=== PATIENT | female | born 1995 | race Caucasian/White ===

== ENCOUNTER 2019-06-12 22:34 | Emergency (ER) | payer OTHER ==
[~2019-06-12] VITALS: Ht 160 cm; Wt 95.0 kg
[2019-06-12 23:02] VITALS: BP 115/79
[2019-06-12 23:06] LABS: BILIRUBIN,URINE NEGATIVE (NEG); CLARITY,URINE CLEAR; COLOR,URINE YELLOW; NITRITE,URINE NEGATIVE (NEG); PH,URINE 5.5 (<5.0-8.0); PROTEIN,URINE NEGATIVE (NEG-TRACE)
[2019-06-12 23:11] LABS: SQUAMOUS EPITHELIAL CELL,UR MOD /LPF
[2019-06-12 23:12] LABS: BACTERIA,URINE 0 /HPF (0-FEW); RBC,URINE OCC /HPF (0-2); WBC,URINE OCC /HPF (0-4)
--- NOTE | 2019-06-12 23:15 | PHYS DOC ---
Past Medical History Past Medical History: Pneumonia, UTI Past Surgical History: No Surgical History Smoking Status: Former Smoker Alcohol Use: Occasionally General Adult EDM: Chief Complaint: FATIGUE HPI: HPI: Patient is a 24 year old female who presents with complaint of chest pain and shortness of breath as well as fatigue that started last Wednesday. She denies any cough. Patient states that the shortness of breath is more because it hurts to breathe. Patient does indicate that she had a fever over 100 a couple of days ago but no further fever.[] Review of Systems: Review of Systems: Constitutional: Reports fever and chills. [] Respiratory: Denies cough. Complains of shortness of breath. [] Cardiovascular: [place] of chest pain. [] GI: Denies abdominal pain, nausea, vomiting, bloody stools or diarrhea. [] Musculoskeletal: Denies back pain or joint pain. [] Integument: Denies rash. [] Neurologic: Denies headache, focal weakness or sensory changes. [] A full 10 point review of systems has been reviewed and is otherwise negative. Heart Score: Risk Factors: Risk Factors: DM, Current or recent (<one month) smoker, HTN, HLP, family history of CAD, obesity. Risk Scores: Score 0 - 3: 2.5% MACE over next 6 weeks - Discharge Home Score 4 - 6: 20.3% MACE over next 6 weeks - Admit for Clinical Observation Score 7 - 10: 72.7% MACE over next 6 weeks - Early Invasive Strategies Physical Exam: PE: Constitutional: Well developed, well nourished, no acute distress, non-toxic appearance. [] HENT: Normocephalic, atraumatic, bilateral external ears normal, oropharynx moist, no oral exudates, nose normal. [] Eyes: PERRLA, EOMI, conjunctiva normal, no discharge. [] Neck: Normal range of motion, no tenderness, supple, no stridor. [] Cardiovascular: Regular rate and rhythm[] Lungs & Thorax: Bilateral breath sounds clear to auscultation [] Abdomen: Bowel sounds normal, soft, no tenderness. [] Skin: Warm, dry, no erythema, no rash. [] Extremities: No tenderness, no cyanosis, no clubbing, ROM intact, no edema. [] Neurologic: Alert and oriented X 3, no focal deficits noted. [] Current Patient Data: Labs: Laboratory Tests Test 06/12/19 22:50 06/12/19 22:53 Urine Collection Type Unknown Urine Color Yellow Urine Clarity Clear Urine pH 5.5 (<5.0-8.0) Urine Specific [place] >=1.030 (1.000-1.030) Urine Protein Negative mg/dL (NEG-TRACE) Urine Glucose (UA) Negative mg/dL (NEG) Urine Ketones (Stick) Trace mg/dL (NEG) Urine Blood Trace (NEG) Urine Nitrite Negative (NEG) Urine Bilirubin Negative (NEG) Urine Urobilinogen Dipstick 1.0 mg/dL (0.2 mg/dL) Urine Leukocyte Esterase Negative (NEG) Urine RBC Occ /HPF (0-2) Urine WBC Occ /HPF (0-4) Urine Squamous Epithelial Cells Mod /LPF Urine Bacteria 0 /HPF (0-FEW) Urine Mucus Marked /LPF POC Urine HCG, Qualitative Hcg negative (Negative) Vital Signs: Vital Signs Date Time Temp Pulse Resp B/P (MAP) Pulse Ox O2 Delivery O2 Flow Rate FiO2 06/12/19 23:02 98.2 80 16 115/79 (91) 100 Room Air 98.2 EKG: EKG: EKG demonstrates normal sinus rhythm with rate of 75.[] Radiology/Procedures: Radiology/Procedures: [] Course & Med Decision Making: Course & Med Decision Making Pertinent Labs and Imaging studies reviewed. (See chart for details) [] Dragon Disclaimer: Dragon Disclaimer: This electronic medical record was generated, in whole or in part, using a voice recognition dictation system. Departure Departure Impression: Primary Impression: Atypical chest pain Additional Impression: Dehydration Disposition: 01 HOME, SELF-CARE Condition: STABLE Referrals: NO PCP (PCP) Patient Instructions: Chest Pain (Nonspecific), Dehydration, Adult, Fatigue JEWEL FERNANDEZ Jr. DO Jun 12, 2019 23:15
[2019-06-12 23:17] LABS: BASO % 1 % (0-3); EOS # 0.2 x10^3/uL (0.0-0.7); EOS % 3 % (0-3); LYMPH # 2.7 x10^3/uL (1.0-4.8); LYMPH % 32 % (24-48); MEAN CORPUSCULAR HEMOGLOBIN 32 pg (25-35); MEAN CORPUSCULAR HGB CONC 35 g/dL (31-37); MEAN CORPUSCULAR VOLUME 90 fL (79-100); MONO # 0.5 x10^3/uL (0.0-1.1); MONO % 6 % (0-9); NEUT % 59 % (31-73); PLATELET COUNT 183 x10^3/uL (140-400); RED BLOOD COUNT 4.76 x10^6/uL (3.50-5.40); RED CELL DISTRIBUTION WIDTH 12.7 % (11.5-14.5); WHITE BLOOD COUNT 8.5 x10^3/uL (4.0-11.0)
[2019-06-12 23:25] LABS: CALCIUM 9.1 mg/dL (8.5-10.1); CREATININE 0.6 mg/dL (0.6-1.0); GFR 122.8; POTASSIUM 3.7 mmol/L (3.5-5.1)
[2019-06-12 23:32] LABS: ALBUMIN 4.2 g/dL (3.4-5.0); TOTAL BILIRUBIN 0.5 mg/dL (0.2-1.0); TOTAL PROTEIN 8.6 g/dL (6.4-8.2)
--- NOTE | 2019-06-12 23:42 | RAD ---
EXAM: AP View of the chest DATE: 06/12/2019 10:53 PM INDICATION: Dyspnea COMPARISON: No Prior FINDINGS: The heart is not enlarged. Mediastinal and hilar contours are normal. No focal parenchymal airspace opacity. No pleural effusion or pneumothorax. IMPRESSION: 1. No radiographic evidence for acute cardiopulmonary process. Electronically signed by: Cliff Oliva MD (06/12/2019 11:38 PM) LEONID
== END 2019-06-12 23:45 | disposition home or self-care (01) ==
LOC: ER 22:34
DX: R07.89 Other chest pain (principal); E86.0 Dehydration; Z87.891 Personal history of nicotine dependence
CPT/HCPCS: 36415; 71045; 80053; 81001; 81025; 85025; 99284

== ENCOUNTER 2021-05-13 21:41 | Observation (INO) | payer OTHER ==
[~2021-05-13] VITALS: Ht 160 cm; Wt 86.0 kg
[2021-05-13 23:04] LABS: BILIRUBIN,URINE NEGATIVE (NEG); CLARITY,URINE CLEAR; COLOR,URINE YELLOW
[2021-05-13 23:05] LABS: NITRITE,URINE NEGATIVE (NEG); PROTEIN,URINE NEGATIVE (NEG-TRACE); UROBILINOGEN,URINE 0.2 mg/dL (0.2 mg/dL)
[2021-05-13 23:08] LABS: BACTERIA,URINE FEW /HPF (0-FEW)
[2021-05-13 23:08] LABS: BASO % 1 % (0-3); EOS # 0.3 x10^3/uL (0.0-0.7); EOS % 5 % (0-3); HEMATOCRIT 37.3 % (36.0-47.0); HEMOGLOBIN 12.8 g/dL (12.0-15.5); LYMPH # 2.1 x10^3/uL (1.0-4.8); LYMPH % 40 % (24-48); MEAN CORPUSCULAR HEMOGLOBIN 32 pg (25-35); MEAN CORPUSCULAR HGB CONC 34 g/dL (31-37); MEAN CORPUSCULAR VOLUME 93 fL (79-100); MONO # 0.3 x10^3/uL (0.0-1.1); MONO % 6 % (0-9); NEUT # 2.6 x10^3/uL (1.8-7.7); NEUT % 48 % (31-73); PLATELET COUNT 175 x10^3/uL (140-400); RED CELL DISTRIBUTION WIDTH 12.1 % (11.5-14.5); WHITE BLOOD COUNT 5.3 x10^3/uL (4.0-11.0)
[2021-05-13 23:16] LABS: CALCIUM 8.5 mg/dL (8.5-10.1); CREATININE 0.8 mg/dL (0.6-1.0); GFR 87.4; POTASSIUM 3.9 mmol/L (3.5-5.1)
[2021-05-13 23:22] LABS: ALBUMIN 3.7 g/dL (3.4-5.0); TOTAL BILIRUBIN 0.2 mg/dL (0.2-1.0); TOTAL PROTEIN 7.5 g/dL (6.4-8.2)
[2021-05-13] MEDS ORDERED: IV NORMAL SALINE 1000ML BAG 1,000 ML IV ONE (23:30)
[2021-05-13] MEDS ORDERED: KETOROLAC 30 MG/ML VIAL. IVP ONE (23:30)
[2021-05-14] VITALS (11 sets, daily range): BP systolic 85–120; BP diastolic 50–68
--- NOTE | 2021-05-14 00:10 | PHYS DOC ---
Past Medical History Past Medical History: Pneumonia, UTI Past Surgical History: No Surgical History Smoking Status: Never Smoker Alcohol Use: Rarely General Adult EDM: Chief Complaint: ABDOMINAL PAIN HPI: HPI: Patient is a 25-year-old female presents to the emergency department complaining of right upper quadrant discomfort for the past 4 months. Patient reports she seen her primary care physician who diagnosed her with GERD and started her on omeprazole. Patient reports this does not seem to be helping. Patient denies taking other medications. Patient states her last menstrual cycle was approximately 2 years ago. Patient states she has an IUD. Patient reports intermittent nausea however is not nauseated at this time, denies vomiting, diarrhea, chest pains or chest palpitations, denies chest or nasal congestion. Patient denies recent fever or chills. Patient denies a surgical history. Patient denies history of gallstones or gallbladder disease. Patient reports she does not smoke cigarettes however does vape on occasion, denies alcohol consumption, reports he does smoke marijuana. Patient states her current pain is an 8 out of 10. Patient reports eating makes it worse, does not feel anythi ng makes it better. Has not taken [id number] or prescription pain medications for this pain. Review of Systems: Review of Systems: 14 body systems of review of systems have been reviewed. See HPI for pertinent positives and negative responses, otherwise all other systems are negative, nonpertinent or noncontributory. Constitutional: Negative except as outlined in HPI above. Skin: Negative except as outlined in HPI above. Eyes: Negative except as outlined in HPI above. HENT: Negative except as outlined in HPI above. Respiratory: Negative except as outlined in HPI above. Cardiovascular: Negative except as outlined in HPI above. GI: Negative except as outlined in HPI above. : Negative except as outlined in HPI above. Musculoskeletal: Negative except as outlined in HPI above. Integument: Negative except as outlined in HPI above. Neurologic: Negative except as outlined in HPI above. Endocrine: Negative except as outlined in HPI above. Lymphatic: Negative except as outlined in HPI above. Psychiatric: Negative except as outlined in HPI above. Heart Score: C/O Chest Pain: No Risk Factors: Risk Factors: DM, Current or recent (<one month) smoker, HTN, HLP, family history of CAD, obesity. Risk Scores: Score 0 - 3: 2.5% MACE over next 6 weeks - Discharge Home Score 4 - 6: 20.3% MACE over next 6 weeks - Admit for Clinical Observation Score 7 - 10: 72.7% MACE over next 6 weeks - Early Invasive Strategies Current Medications: Current Medications Medications (Trade) Dose Ordered Sig/[facility] Start Time Stop Time Status Last Admin Dose Admin Ketorolac Tromethamine (Toradol 30mg Vial) 30 mg 1X ONCE 05/13/21 23:30 05/13/21 23:31 DC 05/13/21 23:24 30 MG Sodium Chloride 1,000 ml @ 1,000 mls/hr 1X ONCE 05/13/21 23:30 05/14/21 00:29 05/13/21 23:23 1,000 MLS/HR Allergies: Allergies: Allergies Coded Allergies Type Severity Reaction Last Updated Verified No Known Drug Allergies 05/13/21 No Physical Exam: PE: Constitutional: Well developed, well nourished, no acute distress, non-toxic appearance. 25-year-old female in no apparent distress. HENT: Normocephalic, atraumatic. Eyes: Conjunctiva normal, no discharge. Neck: Normal range of motion, no stridor. Cardiovascular: No cyanosis appreciated, distal cap refill less than 2 seconds. Lungs & Thorax: Patient is in no respiratory distress, no audible adventitious lung sounds appreciated. Abdomen: No tenderness to the left upper quadrant left lower or right lower quadrant. There is tenderness to palpation to the right upper quadrant, positive Santiago sign no abnormal skin discoloration of the abdomen appreciated, there are no surgical scars of the abdomen. Skin: Warm, dry, no erythema, no rash. Back: No tenderness, no deformities. Extremities: No tenderness, no cyanosis, no clubbing, ROM intact, no edema. Neurologic: Alert and oriented X 3, normal motor function, normal sensory function, no focal deficits noted. Psychologic: Affect normal, judgement normal, mood normal. Current Patient Data: Labs: Laboratory Tests Test 05/13/21 22:40 05/13/21 22:49 05/13/21 22:58 Urine Collection Type Unknown Urine Color Yellow Urine Clarity Clear Urine pH 6.0 (<5.0-8.0) Urine Specific [place] 1.025 (1.000-1.030) Urine Protein Negative mg/dL (NEG-TRACE) Urine Glucose (UA) Negative mg/dL (NEG) Urine Ketones (Stick) Negative mg/dL (NEG) Urine Blood Small (NEG) Urine Nitrite Negative (NEG) Urine Bilirubin Negative (NEG) Urine Urobilinogen Dipstick 0.2 mg/dL (0.2 mg/dL) Urine Leukocyte Esterase Negative (NEG) Urine RBC 1-2 /HPF (0-2) Urine WBC 1-4 /HPF (0-4) Urine Squamous Epithelial Cells Mod /LPF Urine Bacteria Few /HPF (0-FEW) POC Urine HCG, Qualitative Hcg negative (Negative) White Blood Count 5.3 x10^3/uL (4.0-11.0) Red Blood Count 4.00 x10^6/uL (3.50-5.40) Hemoglobin 12.8 g/dL (12.0-15.5) Hematocrit 37.3 % (36.0-47.0) Mean Corpuscular Volume 93 fL (79-100) Mean Corpuscular Hemoglobin 32 pg (25-35) Mean Corpuscular Hemoglobin Concent 34 g/dL (31-37) Red Cell Distribution Width 12.1 % (11.5-14.5) Platelet Count 175 x10^3/uL (140-400) Neutrophils (%) (Auto) 48 % (31-73) Lymphocytes (%) (Auto) 40 % (24-48) Monocytes (%) (Auto) 6 % (0-9) Eosinophils (%) (Auto) 5 % (0-3) H Basophils (%) (Auto) 1 % (0-3) Neutrophils # (Auto) 2.6 x10^3/uL (1.8-7.7) Lymphocytes # (Auto) 2.1 x10^3/uL (1.0-4.8) Monocytes # (Auto) 0.3 x10^3/uL (0.0-1.1) Eosinophils # (Auto) 0.3 x10^3/uL (0.0-0.7) Basophils # (Auto) 0.0 x10^3/uL (0.0-0.2) Sodium Level 142 mmol/L (136-145) Potassium Level 3.9 mmol/L (3.5-5.1) Chloride Level 105 mmol/L (98-107) Carbon Dioxide Level 26 mmol/L (21-32) Anion Gap 11 (6-14) Blood Urea Nitrogen 17 mg/dL (7-20) Creatinine 0.8 mg/dL (0.6-1.0) Estimated GFR (Cockcroft-Gault) 87.4 BUN/Creatinine Ratio 21 (6-20) H Glucose Level 95 mg/dL (70-99) Calcium Level 8.5 mg/dL (8.5-10.1) Total Bilirubin 0.2 mg/dL (0.2-1.0) Aspartate Amino Transferase (AST) 8 U/L (15-37) L Alanine Aminotransferase (ALT) 27 U/L (14-59) Alkaline Phosphatase 77 U/L (46-116) Total Protein 7.5 g/dL (6.4-8.2) Albumin 3.7 g/dL (3.4-5.0) Albumin/Globulin Ratio 1.0 (1.0-1.7) Lipase 242 U/L (73-393) Laboratory Tests 05/13/21 22:58 Laboratory Tests 05/13/21 22:58 Vital Signs: Vital Signs Date Time Temp Pulse Resp B/P (MAP) Pulse Ox O2 Delivery O2 Flow Rate FiO2 05/13/21 23:11 58 24 101/66 (78) 99 Room Air 05/13/21 22:45 98.3 98.3 EKG: EKG: [] Radiology/Procedures: Radiology/Procedures: REASON: Right upper quadrant pain, gallbladder study PROCEDURE: ABDOMEN LTD EXAM: ULTRASOUND ABDOMEN LIMITED CLINICAL HISTORY: Right upper quadrant abdominal pain COMPARISON: No priors Findings: The pancreas, upper abdominal aorta and upper abdominal IVC are normal. Normal liver echogenicity. Right hepatic lobe length is 15.8 cm which is normal. A normal length is less than 16 cm. No liver mass. No changes of liver cirrhosis evident. Gallbladder is packed with gallstones with a wall echo shadow sign, the gallbladder wall is also mildly thickened measuring 4 mm in thickness and there is a positive sonographic Santiago sign, raising suspicion of early changes of cholecystitis. No pericholecystic fluid or edema evident. No biliary ductal dilation common bile duct diameter is 5 mm which is normal. Right renal length 11.3 cm. No mass or hydronephrosis of the right kidney evident. Spleen and left kidney were not evaluated. IMPRESSION: 1. Cholelithiasis with a gallbladder packed with gallstones along with mild gallbladder wall thickening and a positive sonographic Santiago's sign raising suspicion of acute cholecystitis. 2. No biliary ductal dilation. Electronically signed by: Kapil Landaverde MD (05/14/2021 12:16 AM) [facility] [place] & Med Decision Making: Course & Med Decision Making Pertinent Labs and Imaging studies reviewed. (See chart for details) 25-year-old female, vital signs reviewed, presents to the emergency department concerning right upper quadrant pain. Patient's physical examination is concerning for gallbladder component versus other abdominal process. Will order urinalysis assay, test, CBC, CMP, lipase, 1 L normal saline IV, IV pain medication, sonogram study of right upper quadrant. Patient's sonogram concerning for cholelithiasis with cholecystitis, discussed with patient recommendation of admission for surgical consult. Patient is amenable to ED admission planning. Patient reports good pain relief with medications given in the ED. Discussed patient case and ED work-up with ED attending physician Dr. Koo who agrees patient case warrants [facility], will admit to inpatient management physician Dr. Jolly. Patient is currently awaiting MedSurg unit bed assignment from powerhouse electrician. David Disclaimer: David Disclaimer: This electronic medical record was generated, in whole or in part, using a voice recognition dictation system. Departure Departure Impression: Primary Impression: Cholecystitis, acute with cholelithiasis Qualified Codes: K80.00 - Calculus of gallbladder with acute cholecystitis without obstruction Disposition: ADMITTED INPATIENT Admitting Physician: HIMS (Admit to Dr. Jolly, consult surgery.) Condition: STABLE Referrals: NO PCP (PCP) JOAQUINA ÁLVAREZ APRN May 14, 2021 00:10
--- NOTE | 2021-05-14 00:19 | RAD ---
EXAM: ULTRASOUND ABDOMEN LIMITED CLINICAL HISTORY: Right upper quadrant abdominal pain COMPARISON: No priors Findings: The pancreas, upper abdominal aorta and upper abdominal IVC are normal. Normal liver echogenicity. Right hepatic lobe length is 15.8 cm which is normal. A normal length is l ess than 16 cm. No liver mass. No changes of liver cirrhosis evident. Gallbladder is packed with gall stones with a wall echo shadow sign, the gallbladder wall is also mildly thickened measuring 4 mm in thickness and there is a positive sonographic Santiago sign, raising suspicion of early changes of chol ecystitis. No pericholecystic fluid or edema evident. No biliary ductal dilation common bile duct flaco meter is 5 mm which is normal. Right renal length 11.3 cm. No mass or hydronephrosis of the right kidney evident. Spleen and left ki dney were not evaluated. IMPRESSION: 1. Cholelithiasis with a gallbladder packed with gallstones along with mild gallbladder wall thickeni ng and a positive sonographic Santiago's sign raising suspicion of acute cholecystitis. 2. No biliary ductal dilation. Electronically signed by: Kapil Landaverde MD (05/14/2021 12:16 AM) [facility]
[2021-05-14] MEDS ORDERED: MORPHINE SULFATE 4 MG/ML INJ. IVP PRN (01:00)
[2021-05-14] MEDS ORDERED: ONDANSETRON PF 4 MG/2 ML VIAL. IVP PRN ×3 (01:00→11:30)
[2021-05-14] MEDS ORDERED: ACETAMINOPHEN 325 MG TABLET. PO PRN ×2 (01:00→10:15)
--- NOTE | 2021-05-14 02:00 | NUR ---
Patient admitted from ER to room 412 per cart. Admitting diagnosis: cholelithiasis vs cholecystitis. Patient c/o RUQ abdominal pain for last several days with some nausea. Consult with Dr. Remy for possible surgery. Patient has NKA. Pain is 2/10 at this time. Will continue to monitor.
[2021-05-14] MEDS ORDERED: PANT20TA2 PO (02:38)
--- NOTE | 2021-05-14 08:27 | PDOC2 ---
CHRIS MELVIN CHEMICAL RESEARCH WORKER 05/14/21 0826: CONSULT Date of Consult Date of Consult DATE: 05/14/21 TIME: 08:18 Reason for Consult Reason for Consult: cholecystitis Referring Physician Referring Physician: ER Identification/Chief Complaint Chief Complaint abdominal pain Source Source: Chart review, Patient History of Present Illness Reason for Visit: 4 months of intermittent abdominal pain Treated for GERD, no improvement RUQ, radiation to back, associated nausea pain worse with eating worsening over last few weeks Past Medical History Past Medical History no pertinent hx Past Surgical History Past Surgical History: No pertinent history Family History Family History: Other (noncontributory to current illness ) Social History <1 pack per day ALCOHOL: rare Drugs: None Lives: with Family Current Problem List Problem List Problems Medical Problems: (1) Cholecystitis, acute with cholelithiasis Status: Acute Current Medications Current Medications Current Medications Sodium Chloride 1,000 ml @ 1,000 mls/hr 1X ONCE IV Last administered on 05/13/21at 23:23; Start 05/13/21 at 23:30; Stop 05/14/21 at 00:29; Status DC Ketorolac Tromethamine (Toradol 30mg Vial) 30 mg 1X ONCE IVP Last administered on 05/13/21at 23:24; Start 05/13/21 at 23:30; Stop 05/13/21 at 23:31; Status DC Ondansetron HCl (Zofran) 4 mg PRN Q8HRS PRN IVP NAUSEA/VOMITING 1ST CHOICE; Start 05/14/21 at 01:00; Stop 05/15/21 at 00:59 Morphine Sulfate (Morphine Sulfate) 4 mg PRN Q2HR PRN IVP SEVERE PAIN 7-10; Start 05/14/21 at 01:00; Stop 05/15/21 at 00:59 Acetaminophen (Tylenol) 650 mg PRN Q4HRS PRN PO FEVER > 100.3'F; Start 05/14/21 at 01:00; Stop 05/15/21 at 00:59 Active Scripts Active Reported Protonix (Pantoprazole Sodium) 20 Mg Tablet.dr 1 Tab PO DAILY Allergies Allergies: Coded Allergies: No Known Drug Allergies (Unverified , 05/13/21) ROS General: No: Chills, Other (fevers ) PSYCHOLOGICAL ROS: No: Anxiety, Behavioral Disorder Eyes: No Blurry vision, No Double vision HEENT: No: Heacaches, Sore Throat Hematological and Lymphatic: No: Bleeding Problems, Blood Clots Respiratory: No: Cough, Shortness of breath Cardiovascular: No Chest Pain, No Palpitations Gastrointestinal: Yes Other (see hpi) Genitourinary: No Dysuria, No Hematuria Musculoskeletal: No Joint Pain, No Joint Swelling, No Muscle Pain Neurological: No Impaired Coord/balance, No Numbness/Tingling Skin: No Pruritus, No Rash Physical Exam General: Alert, Oriented X3, Cooperative, No acute distress HEENT: PERRLA, Mucous membr. moist/pink Lungs: Clear to auscultation, Normal air movement Heart: Regular rate, Normal S1, Normal S2, No murmurs Abdomen: Soft, Other (mild ttp RUQ) Extremities: No clubbing, No cyanosis Skin: No rashes, No breakdown Neuro: Normal gait, Normal speech Psych/Mental Status: Mental status NL, Mood NL MUSCULOSKELETAL: No deformity, No swelling Vitals VITALS Vital Signs Date Time Temp Pulse Resp B/P (MAP) Pulse Ox O2 Delivery O2 Flow Rate FiO2 05/14/21 07:15 98.0 56 18 109/53 (71) 98 Room Air 98.0 Labs Labs Laboratory Tests Test 05/13/21 22:40 05/13/21 22:49 05/13/21 22:58 Urine Collection Type Unknown Urine Color Yellow Urine Clarity Clear Urine pH 6.0 (<5.0-8.0) Urine Specific [place] 1.025 (1.000-1.030) Urine Protein Negative mg/dL (NEG-TRACE) Urine Glucose (UA) Negative mg/dL (NEG) Urine Ketones (Stick) Negative mg/dL (NEG) Urine Blood Small (NEG) Urine Nitrite Negative (NEG) Urine Bilirubin Negative (NEG) Urine Urobilinogen Dipstick 0.2 mg/dL (0.2 mg/dL) Urine Leukocyte Esterase Negative (NEG) Urine RBC 1-2 /HPF (0-2) Urine WBC 1-4 /HPF (0-4) Urine Squamous Epithelial Cells Mod /LPF Urine Bacteria Few /HPF (0-FEW) Bedside Urine HCG, Qualitative Hcg negative (Negative) White Blood Count 5.3 x10^3/uL (4.0-11.0) Red Blood Count 4.00 x10^6/uL (3.50-5.40) Hemoglobin 12.8 g/dL (12.0-15.5) Hematocrit 37.3 % (36.0-47.0) Mean Corpuscular Volume 93 fL (79-100) Mean Corpuscular Hemoglobin 32 pg (25-35) Mean Corpuscular Hemoglobin Concent 34 g/dL (31-37) Red Cell Distribution Width 12.1 % (11.5-14.5) Platelet Count 175 x10^3/uL (140-400) Neutrophils (%) (Auto) 48 % (31-73) Lymphocytes (%) (Auto) 40 % (24-48) Monocytes (%) (Auto) 6 % (0-9) Eosinophils (%) (Auto) 5 % (0-3) Basophils (%) (Auto) 1 % (0-3) Neutrophils # (Auto) 2.6 x10^3/uL (1.8-7.7) Lymphocytes # (Auto) 2.1 x10^3/uL (1.0-4.8) Monocytes # (Auto) 0.3 x10^3/uL (0.0-1.1) Eosinophils # (Auto) 0.3 x10^3/uL (0.0-0.7) Basophils # (Auto) 0.0 x10^3/uL (0.0-0.2) Sodium Level 142 mmol/L (136-145) Potassium Level 3.9 mmol/L (3.5-5.1) Chloride Level 105 mmol/L (98-107) Carbon Dioxide Level 26 mmol/L (21-32) Anion Gap 11 (6-14) Blood Urea Nitrogen 17 mg/dL (7-20) Creatinine 0.8 mg/dL (0.6-1.0) Estimated GFR (Cockcroft-Gault) 87.4 BUN/Creatinine Ratio 21 (6-20) Glucose Level 95 mg/dL (70-99) Calcium Level 8.5 mg/dL (8.5-10.1) Total Bilirubin 0.2 mg/dL (0.2-1.0) Aspartate Amino Transf (AST/SGOT) 8 U/L (15-37) Alanine Aminotransferase (ALT/SGPT) 27 U/L (14-59) Alkaline Phosphatase 77 U/L (46-116) Total Protein 7.5 g/dL (6.4-8.2) Albumin 3.7 g/dL (3.4-5.0) Albumin/Globulin Ratio 1.0 (1.0-1.7) Lipase 242 U/L (73-393) Laboratory Tests Test 05/13/21 22:40 05/13/21 22:49 05/13/21 22:58 Urine Collection Type Unknown Urine Color Yellow Urine Clarity Clear Urine pH 6.0 (<5.0-8.0) Urine Specific [place] 1.025 (1.000-1.030) Urine Protein Negative mg/dL (NEG-TRACE) Urine Glucose (UA) Negative mg/dL (NEG) Urine Ketones (Stick) Negative mg/dL (NEG) Urine Blood Small (NEG) Urine Nitrite Negative (NEG) Urine Bilirubin Negative (NEG) Urine Urobilinogen Dipstick 0.2 mg/dL (0.2 mg/dL) Urine Leukocyte Esterase Negative (NEG) Urine RBC 1-2 /HPF (0-2) Urine WBC 1-4 /HPF (0-4) Urine Squamous Epithelial Cells Mod /LPF Urine Bacteria Few /HPF (0-FEW) Bedside Urine HCG, Qualitative Hcg negative (Negative) White Blood Count 5.3 x10^3/uL (4.0-11.0) Red Blood Count 4.00 x10^6/uL (3.50-5.40) Hemoglobin 12.8 g/dL (12.0-15.5) Hematocrit 37.3 % (36.0-47.0) Mean Corpuscular Volume 93 fL (79-100) Mean Corpuscular Hemoglobin 32 pg (25-35) Mean Corpuscular Hemoglobin Concent 34 g/dL (31-37) Red Cell Distribution Width 12.1 % (11.5-14.5) Platelet Count 175 x10^3/uL (140-400) Neutrophils (%) (Auto) 48 % (31-73) Lymphocytes (%) (Auto) 40 % (24-48) Monocytes (%) (Auto) 6 % (0-9) Eosinophils (%) (Auto) 5 % (0-3) Basophils (%) (Auto) 1 % (0-3) Neutrophils # (Auto) 2.6 x10^3/uL (1.8-7.7) Lymphocytes # (Auto) 2.1 x10^3/uL (1.0-4.8) Monocytes # (Auto) 0.3 x10^3/uL (0.0-1.1) Eosinophils # (Auto) 0.3 x10^3/uL (0.0-0.7) Basophils # (Auto) 0.0 x10^3/uL (0.0-0.2) Sodium Level 142 mmol/L (136-145) Potassium Level 3.9 mmol/L (3.5-5.1) Chloride Level 105 mmol/L (98-107) Carbon Dioxide Level 26 mmol/L (21-32) Anion Gap 11 (6-14) Blood Urea Nitrogen 17 mg/dL (7-20) Creatinine 0.8 mg/dL (0.6-1.0) Estimated GFR (Cockcroft-Gault) 87.4 BUN/Creatinine Ratio 21 (6-20) Glucose Level 95 mg/dL (70-99) Calcium Level 8.5 mg/dL (8.5-10.1) Total Bilirubin 0.2 mg/dL (0.2-1.0) Aspartate Amino Transf (AST/SGOT) 8 U/L (15-37) Alanine Aminotransferase (ALT/SGPT) 27 U/L (14-59) Alkaline Phosphatase 77 U/L (46-116) Total Protein 7.5 g/dL (6.4-8.2) Albumin 3.7 g/dL (3.4-5.0) Albumin/Globulin Ratio 1.0 (1.0-1.7) Lipase 242 U/L (73-393) Assessment/Plan Assessment/Plan acute cholecystitis plan lap [place] today DIXIE GAMBLE MD 05/14/21 9769: CONSULT Assessment/Plan Assessment/Plan Pt seen and examined. Agree with Ms. Melvin's note Pt feels much better today, but multiple previous episodes abd soft, ND, NTTP TO OR for laparosocpic versus open cholecystectomy with cholangiogram. R/R/B/A d/w pt and pt's family. Risks, including, but not limited to: bleeding, infection, damage to surrounding structures, risk of anesthesia, risk of open. They appear to understand, their questions are answered and they elect to proceed. Thanks for consult! CHRIS MELVIN CHEMICAL RESEARCH WORKER May 14, 2021 08:26 DIXIE GAMBLE MD May 14, 2021 09:46
[2021-05-14] MEDS ORDERED: PROPOFOL 10 MG/ML (20ML) VIAL. IV ONE ×2 (08:50→10:47)
[2021-05-14] MEDS ORDERED: fentaNYL PF VIAL 100 MCG/2 ML VIAL ONE (08:51)
[2021-05-14] MEDS ORDERED: ROCURONIUM 50 MG/5 ML VIAL. ONE (08:51)
[2021-05-14] MEDS ORDERED: BUPIVACAINE-EPI 0.5% 30 ML VIAL KIT. ONE (08:52)
[2021-05-14] MEDS ORDERED: SURGICEL HEMOSTAT 4X8 EACH. ONE (08:53)
[2021-05-14] MEDS ORDERED: IOHEXOL 300 MG/ML 50 ML VIAL. ONE (08:53)
[2021-05-14] MEDS ORDERED: BISACODYL 10 MG SUPP.RECT. ONE (08:53)
[2021-05-14] MEDS ORDERED: HEPARIN 1,000 UNIT in IV NORMAL SALINE 1,000 ML for SURG PERIOP IRR ONE (09:00)
[2021-05-14] MEDS ORDERED: MIDAZOLAM HCL/PF 2 MG/2 ML VIAL. ONE (09:30)
[2021-05-14] MEDS ORDERED: fentaNYL PF VIAL 100 MCG/2 ML VIAL IVP PRN ×2 (09:45)
[2021-05-14] MEDS ORDERED: HYDROmorphone 2 MG/ML INJ. IVP PRN (09:45)
[2021-05-14] MEDS ORDERED: IV RINGERS,LACTATED 1000ML 1,000 ML IV SCH (09:45)
--- NOTE | 2021-05-14 10:04 | PDOC1 ---
History and Physical Date of Service: DOS: DATE: 05/14/21 TIME: 10:03 Chief Complaint: Chief Complain: abd pain History of Present Illness: HPI: Patient is a 25-year-old female presents to the emergency department complaining of right upper quadrant discomfort for the past 4 months. Patient reports she seen her primary care physician who diagnosed her with GERD and started her on omeprazole. Patient reports this does not seem to be helping. Patient denies taking other medications. Patient states her last menstrual cycle was approximately 2 years ago. Patient states she has an IUD. Patient reports intermittent nausea however is not nauseated at this time, denies vomiting, diarrhea, chest pains or chest palpitations, denies chest or nasal congestion. Patient denies recent fever or chills. Patient denies a surgical history. Patient denies history of gallstones or gallbladder disease. Patient reports she does not smoke cigarettes however does vape on occasion, denies alcohol consumption, reports he does smoke marijuana. Patient states her current pain is an 8 out of 10. Patient reports eating makes it worse, does not feel anything makes it better. Has not taken [id number] or prescription pain medications for this pain. Past Medical/Surgical History: PMH/PSH: Frequent UTI otherwise no medical history no daily meds Allergies: Allergies: Coded Allergies: No Known Drug Allergies (Unverified , 05/13/21) Family History: Family History: None known per the patient Social History: Social History: Denies alcohol tobacco drug use Current Medications: Current Medications Current Medications Sodium Chloride 1,000 ml @ 1,000 mls/hr 1X ONCE IV Last administered on 05/13/21at 23:23; Start 05/13/21 at 23:30; Stop 05/14/21 at 00:29; Status DC Ketorolac Tromethamine (Toradol 30mg Vial) 30 mg 1X ONCE IVP Last administered on 05/13/21at 23:24; Start 05/13/21 at 23:30; Stop 05/13/21 at 23:31; Status DC Ondansetron HCl (Zofran) 4 mg PRN Q8HRS PRN IVP NAUSEA/VOMITING 1ST CHOICE; Start 05/14/21 at 01:00; Stop 05/15/21 at 00:59 Morphine Sulfate (Morphine Sulfate) 4 mg PRN Q2HR PRN IVP SEVERE PAIN 7-10; Start 05/14/21 at 01:00; Stop 05/15/21 at 00:59 Acetaminophen (Tylenol) 650 mg PRN Q4HRS PRN PO FEVER > 100.3'F; Start 05/14/21 at 01:00; Stop 05/15/21 at 00:59 Heparin Sodium (Porcine) 1000 unit/Sodium Chloride 1,001 ml @ 1,001 mls/hr 1X ONCE IRR ; Start 05/14/21 at 09:00; Stop 05/14/21 at 09:59; Status DC Cefazolin Sodium/ Dextrose 50 ml @ 100 mls/hr 1X PREOP PRN IV PRIOR TO PROCEDURE; Start 05/14/21 at 09:00; Stop 05/15/21 at 08:59 Propofol (Diprivan) 200 mg STK-MED ONCE IV ; Start 05/14/21 at 08:50; Stop 05/14/21 at 08:51; Status DC Rocuronium Union (Zemuron) 50 mg STK-MED ONCE .ROUTE ; Start 05/14/21 at 08:5 1; Stop 05/14/21 at 08:51; Status DC Fentanyl Citrate (Fentanyl 2ml Vial) 100 mcg STK-MED ONCE .ROUTE ; Start 05/14/21 at 08:51; Stop 05/14/21 at 08:51; Status DC Bupivacaine HCl/ Epinephrine Bitart (Sensorcain-Epi 0.5% Kit) 30 ml STK-MED ONCE .ROUTE ; Start 05/14/21 at 08:52; Stop 05/14/21 at 08:53; Status DC Iohexol (Omnipaque 300 Mg/ml) 50 ml STK-MED ONCE .ROUTE ; Start 05/14/21 at 08:53; Stop 05/14/21 at 08:53; Status DC Cellulose (Surgicel Hemostat 4x8) 1 each STK-MED ONCE .ROUTE ; Start 05/14/21 at 08:53; Stop 05/14/21 at 08:53; Status DC Bisacodyl (Dulcolax Supp) 10 mg STK-MED ONCE .ROUTE ; Start 05/14/21 at 08:53; Stop 05/14/21 at 08:53; Status DC Cefazolin Sodium/ Dextrose 50 ml @ As Directed STK-MED ONCE IV ; Start 05/14/21 at 09:23; Stop 05/14/21 at 09:24; Status DC Midazolam HCl (Versed) 2 mg STK-MED ONCE .ROUTE ; Start 05/14/21 at 09:30; Stop 05/14/21 at 09:30; Status DC Fentanyl Citrate (Fentanyl 2ml Vial) 25 mcg PRN Q5MIN PRN IVP MILD PAIN 1-3; Start 05/14/21 at 09:45; Stop 05/15/21 at 09:44 Fentanyl Citrate (Fentanyl 2ml Vial) 50 mcg PRN Q5MIN PRN IVP MODERATE PAIN 4- 6; Start 05/14/21 at 09:45; Stop 05/15/21 at 09:44 Morphine Sulfate (Morphine Sulfate) 1 mg PRN Q10MIN PRN IVP SEVERE PAIN 7-10; Start 05/14/21 at 09:45; Stop 05/15/21 at 09:44 Ringer's Solution 1,000 ml @ 30 mls/hr Q24H IV Last administered on 05/14/21at 09:45; Start 05/14/21 at 09:45; Stop 05/14/21 at 21:44 Hydromorphone HCl (Dilaudid) 0.5 mg PRN Q10MIN PRN IVP SEVERE PAIN 7-10, 2nd CHOICE; Start 05/14/21 at 09:45; Stop 05/15/21 at 09:44 Prochlorperazine Edisylate (Compazine) 5 mg PACU PRN PRN IVP NAUSEA, MRX1; Start 05/14/21 at 09:45; Stop 05/15/21 at 09:44 Active Scripts Active Reported Protonix (Pantoprazole Sodium) 20 Mg Tablet. 1 Tab PO DAILY ROS: Review of Systems Review of System Unless noted in HPI 14 point review of systems was negative Physical Exam: Vital Signs: Vital Signs Date Time Temp Pulse Resp B/P (MAP) Pulse Ox O2 Delivery O2 Flow Rate FiO2 05/14/21 09:52 98.0 67 15 115/71 98 Room Air 98.0 Physcial Exam: GEN: No apparent distress. Alert and oriented HEENT: Normal cephalic, atraumatic, external auditory canals are patent EYES: Extraocular muscles are intact, pupil are equally round and reactive to light and accommodation MUSCULOSKELETAL: Well developed , well nourished, good range of motion ENDOCRINE: No thyromegaly was palpated LYMPHATICS: No cervical chain or axillary nodes were noted HEMATOPOIETIC: No bruising NECK: Supple, no JVD, no thyromegaly was noted LUNGS: Clear to auscultation in all lung fontaine without rhonchi or wheezing HEART: RRR, S!, S2 present. Peripheral pulses intact, no obvious murmurs noted ABDOMEN: Diffusely tender however more tender in right upper quadrant EXTREMITIES: Without clubbing, cyanosis, or edema. Pedal pulses intact. Negative Homans sign NEUROLOGIC: Normal speech and tone. A&O x 3, moves all extremities, no obvious focal deficits PSYCHIATRIC: Normal affect, normal mood. Stable SKIN: No ulcerations or rashes, good skin turgor, no jaundice VASCULAR: Good capillary refill, neurovascular bundle appears to be intact Labs: Labs: Laboratory Tests Test 05/13/21 22:40 05/13/21 22:49 05/13/21 22:58 05/14/21 08:34 Urine Collection Type Unknown Urine Color Yellow Urine Clarity Clear Urine pH 6.0 (<5.0-8.0) Urine Specific [place] 1.025 (1.000-1.030) Urine Protein Negative mg/dL (NEG-TRACE) Urine Glucose (UA) Negative mg/dL (NEG) Urine Ketones (Stick) Negative mg/dL (NEG) Urine Blood Small (NEG) Urine Nitrite Negative (NEG) Urine Bilirubin Negative (NEG) Urine Urobilinogen Dipstick 0.2 mg/dL (0.2 mg/dL) Urine Leukocyte Esterase Negative (NEG) Urine RBC 1-2 /HPF (0-2) Urine WBC 1-4 /HPF (0-4) Urine Squamous Epithelial Cells Mod /LPF Urine Bacteria Few /HPF (0-FEW) Bedside Urine HCG, Qualitative Hcg negative (Negative) White Blood Count 5.3 x10^3/uL (4.0-11.0) Red Blood Count 4.00 x10^6/uL (3.50-5.40) Hemoglobin 12.8 g/dL (12.0-15.5) Hematocrit 37.3 % (36.0-47.0) Mean Corpuscular Volume 93 fL (79-100) Mean Corpuscular Hemoglobin 32 pg (25-35) Mean Corpuscular Hemoglobin Concent 34 g/dL (31-37) Red Cell Distribution Width 12.1 % (11.5-14.5) Platelet Count 175 x10^3/uL (140-400) Neutrophils (%) (Auto) 48 % (31-73) Lymphocytes (%) (Auto) 40 % (24-48) Monocytes (%) (Auto) 6 % (0-9) Eosinophils (%) (Auto) 5 % (0-3) Basophils (%) (Auto) 1 % (0-3) Neutrophils # (Auto) 2.6 x10^3/uL (1.8-7.7) Lymphocytes # (Auto) 2.1 x10^3/uL (1.0-4.8) Monocytes # (Auto) 0.3 x10^3/uL (0.0-1.1) Eosinophils # (Auto) 0.3 x10^3/uL (0.0-0.7) Basophils # (Auto) 0.0 x10^3/uL (0.0-0.2) Sodium Level 142 mmol/L (136-145) Potassium Level 3.9 mmol/L (3.5-5.1) Chloride Level 105 mmol/L (98-107) Carbon Dioxide Level 26 mmol/L (21-32) Anion Gap 11 (6-14) Blood Urea Nitrogen 17 mg/dL (7-20) Creatinine 0.8 mg/dL (0.6-1.0) Estimated GFR (Cockcroft-Gault) 87.4 BUN/Creatinine Ratio 21 (6-20) Glucose Level 95 mg/dL (70-99) Calcium Level 8.5 mg/dL (8.5-10.1) Total Bilirubin 0.2 mg/dL (0.2-1.0) Aspartate Amino Transf (AST/SGOT) 8 U/L (15-37) Alanine Aminotransferase (ALT/SGPT) 27 U/L (14-59) Alkaline Phosphatase 77 U/L (46-116) Total Protein 7.5 g/dL (6.4-8.2) Albumin 3.7 g/dL (3.4-5.0) Albumin/Globulin Ratio 1.0 (1.0-1.7) Lipase 242 U/L (73-393) SARS-CoV-2 Antigen (Rapid) Negative (NEGATIVE) Laboratory Tests Test 05/13/21 22:40 05/13/21 22:49 05/13/21 22:58 05/14/21 08:34 Urine Collection Type Unknown Urine Color Yellow Urine Clarity Clear Urine pH 6.0 (<5.0-8.0) Urine Specific [place] 1.025 (1.000-1.030) Urine Protein Negative mg/dL (NEG-TRACE) Urine Glucose (UA) Negative mg/dL (NEG) Urine Ketones (Stick) Negative mg/dL (NEG) Urine Blood Small (NEG) Urine Nitrite Negative (NEG) Urine Bilirubin Negative (NEG) Urine Urobilinogen Dipstick 0.2 mg/dL (0.2 mg/dL) Urine Leukocyte Esterase Negative (NEG) Urine RBC 1-2 /HPF (0-2) Urine WBC 1-4 /HPF (0-4) Urine Squamous Epithelial Cells Mod /LPF Urine Bacteria Few /HPF (0-FEW) Bedside Urine HCG, Qualitative Hcg negative (Negative) White Blood Count 5.3 x10^3/uL (4.0-11.0) Red Blood Count 4.00 x10^6/uL (3.50-5.40) Hemoglobin 12.8 g/dL (12.0-15.5) Hematocrit 37.3 % (36.0-47.0) Mean Corpuscular Volume 93 fL (79-100) Mean Corpuscular Hemoglobin 32 pg (25-35) Mean Corpuscular Hemoglobin Concent 34 g/dL (31-37) Red Cell Distribution Width 12.1 % (11.5-14.5) Platelet Count 175 x10^3/uL (140-400) Neutrophils (%) (Auto) 48 % (31-73) Lymphocytes (%) (Auto) 40 % (24-48) Monocytes (%) (Auto) 6 % (0-9) Eosinophils (%) (Auto) 5 % (0-3) Basophils (%) (Auto) 1 % (0-3) Neutrophils # (Auto) 2.6 x10^3/uL (1.8-7.7) Lymphocytes # (Auto) 2.1 x10^3/uL (1.0-4.8) Monocytes # (Auto) 0.3 x10^3/uL (0.0-1.1) Eosinophils # (Auto) 0.3 x10^3/uL (0.0-0.7) Basophils # (Auto) 0.0 x10^3/uL (0.0-0.2) Sodium Level 142 mmol/L (136-145) Potassium Level 3.9 mmol/L (3.5-5.1) Chloride Level 105 mmol/L (98-107) Carbon Dioxide Level 26 mmol/L (21-32) Anion Gap 11 (6-14) Blood Urea Nitrogen 17 mg/dL (7-20) Creatinine 0.8 mg/dL (0.6-1.0) Estimated GFR (Cockcroft-Gault) 87.4 BUN/Creatinine Ratio 21 (6-20) Glucose Level 95 mg/dL (70-99) Calcium Level 8.5 mg/dL (8.5-10.1) Total Bilirubin 0.2 mg/dL (0.2-1.0) Aspartate Amino Transf (AST/SGOT) 8 U/L (15-37) Alanine Aminotransferase (ALT/SGPT) 27 U/L (14-59) Alkaline Phosphatase 77 U/L (46-116) Total Protein 7.5 g/dL (6.4-8.2) Albumin 3.7 g/dL (3.4-5.0) Albumin/Globulin Ratio 1.0 (1.0-1.7) Lipase 242 U/L (73-393) SARS-CoV-2 Antigen (Rapid) Negative (NEGATIVE) Assessment/Plan Assessment/Plan Cholelithiasis with cholecystitis. Recurrent abdominal pain. -Presented with right upper quadrant abdominal pain and imaging showing cholelithiasis with evidence of cholecystitis -Surgical team consulted planning on operation today 05/14 As needed pain control after surgery Advance diet as tolerated after surgery. Will evaluate patient again after surgery suspect she can likely discharge home tomorrow if no complications. Justifications for Admission Other Justification PRAVEEN JASMINE MD May 14, 2021 10:04
[2021-05-14] MEDS ORDERED: oxyCODONE/APAP 5/325 1 TAB TABLET PO PRN ×2 (10:15)
[2021-05-14] MEDS ORDERED: ZOLPIDEM 5 MG TABLET. PO PRN (10:15)
[2021-05-14] MEDS ORDERED: ELECTROLYTE (NON-ICU) PROTOCOL. MC PRN (10:15)
[2021-05-14] MEDS ORDERED: CALCIUM CARBONATE 500 MG TAB.CHEW PO PRN (10:15)
[2021-05-14] MEDS ORDERED: DEXAMETHASONE SOD PHOS 4 MG/ML VIAL ONE (10:20)
[2021-05-14] MEDS ORDERED: SEVOFLURANE 61 TO 120 MINUTES. IH ONE (10:20)
[2021-05-14] MEDS ORDERED: ONDANSETRON PF 4 MG/2 ML VIAL. ONE (10:20)
[2021-05-14] MEDS ORDERED: HYDROmorphone 2 MG/ML INJ. ONE (10:35)
[2021-05-14] MEDS: SENNOSIDES/DOCUSATE 8.6/50MG TABLET. PO SCH ×2 (11:00→20:52)
[2021-05-14] MEDS ORDERED: SUGAMMADEX SODIUM 200 MG/2 ML VIAL. IVP ONE (11:00)
--- NOTE | 2021-05-14 11:18 | RAD ---
EXAM: Intraoperative cholangiogram. HISTORY: Pain. Cholecystectomy. COMPARISON: None. FINDINGS: 3 fluoroscopic images were obtained during an intraoperative galactogram. There is contrast opacification of the biliary tree and proximal duodenum. There is no evidence of a retained stone. T he total fluoroscopy time is 0.1 minute. IMPRESSION: Intraoperative cholangiogram, without evidence of a retained stone. Electronically signed by: Tanya Becerril MD (05/14/2021 11:15 AM) [id number]
--- NOTE | 2021-05-14 11:27 | PDOC4 ---
OPERATIVE NOTE Date: Date: May 14, 2021 Pre-Op Diagnosis: Calculous cholecystitis Post-Op Diagnosis: same Procedure Performed: laparoscopic cholecystectomy with cholangiogram Surgeon: Simone Gamble Anesthesia Type: GETA plus local Blood Loss: 50 Specimans Obtained: gallbladder Findings: normal anatomy, obesity, adhesions to gallbladder with large stone, normal cholangiogram Complications: none Operative Note: After obtaining informed consent, patient was taken to OR, induced under GETA and prepped in the usual fashion. 5 mm ports placed in umbilicus and RUQ, 12 port placed epigastric, all under laparoscopic guidance. Abdominal cavity was explored and normal except as noted above. Gallbladder was taken off fossa using cautery in dome down fashion. Cystic artery was ligated with clips. Cholangiogram was obtained via cystic duct and was normal. Cystic duct controlled with hemolok and clips. Gallbladder placed in bag, delivered and sent to pathology. Copious irrigation. No evidence of bleeding or other pathology. Ports removed without bleeding. Fascia repaired with 0 vicryl. Skin repaired with 4 0 monocryl. Dressing placed. Patient tolerated procedure well and sent to PACU in stable condition. All counts correct. Wound class is 2. DIXIE GAMBLE MD May 14, 2021 11:27
[2021-05-14] MEDS ORDERED: IV NORMAL SALINE 1000ML BAG 1,000 ML IV SCH (11:30)
[2021-05-14] MEDS: IV RINGERS,LACTATED 1000ML 1,000 ML IV SCH ×2 (11:30→21:30)
[2021-05-14] MEDS ORDERED: DEXTROSE 50% 25 GM / 50ML DISP.SYRIN. IV PRN (11:30)
[2021-05-14] MEDS ORDERED: IV DEXTROSE 5% 250 ML BAG. IV PRN (11:30)
[2021-05-14] MEDS ORDERED: NALOXONE 0.4 MG/ML VIAL. IV PRN (11:30)
[2021-05-14] MEDS ORDERED: HYDROcodone/APAP 5/325MG 1 TAB TABLET PO PRN (11:30)
[2021-05-14] MEDS ORDERED: 0.9 % SODIUM CHLORIDE 10 ML DISP.SYRIN. IV PRN (11:30)
[2021-05-14] MEDS ORDERED: PROCHLORPERAZINE 10 MG/2 ML VIAL. ONE (11:37)
[2021-05-14] MEDS ORDERED: MORPHINE SULFATE 2 MG/ML INJ. ONE (11:38)
[2021-05-14] MEDS ORDERED: KETOROLAC 30 MG/ML VIAL. ONE (11:38)
--- NOTE | 2021-05-14 11:49 | NUR ---
SW following. Discussed with RN, pt from home, room air, NPO, rapid COVID-19 negative. Surgery following - pt having surgery today. RN advised no SW needs at this time. SW will continue to follow.
[2021-05-14] MEDS ORDERED: KETOROLAC 30 MG/ML VIAL. IVP ONE (11:59)
[2021-05-14] MEDS: PROCHLORPERAZINE 10 MG/2 ML VIAL. IVP PRN ×2 (12:05→12:18)
[2021-05-14] MEDS: MORPHINE SULFATE 2 MG/ML INJ. IVP PRN ×2 (12:05→12:19)
[2021-05-14] MEDS: DOCUSATE SODIUM 100 MG CAPSULE. PO SCH (20:53)
[2021-05-15 03:00] VITALS: BP 97/47
[2021-05-15] MEDS: IV RINGERS,LACTATED 1000ML 1,000 ML IV SCH (06:08)
[2021-05-15 07:00] VITALS: BP 99/65
[2021-05-15] MEDS: SENNOSIDES/DOCUSATE 8.6/50MG TABLET. PO SCH (08:05)
[2021-05-15] MEDS: DOCUSATE SODIUM 100 MG CAPSULE. PO SCH (08:05)
--- NOTE | 2021-05-15 08:48 | PDOC ---
SURGICAL PROGRESS NOTE DATE: 05/15/21 TIME: 08:46 Subjective Patient doing well does complain of some right upper quadrant abdominal pain was able to eat diet with some heartburn otherwise did well Vital Signs Vital Signs Date Time Temp Pulse Resp B/P (MAP) Pulse Ox O2 Delivery O2 Flow Rate FiO2 05/15/21 08:06 98 Room Air 05/15/21 07:00 98.0 59 18 99/65 (76) 98.0 05/14/21 20:00 10.0 I&O Intake and Output 05/15/21 07:00 Intake Total 1790 ml Output Total 30 ml Balance 1760 ml Intake Oral 440 ml IV Total 1350 ml Output Estimated Blood Loss 30 ml # Voids 3 PATIENT HAS A WEISS: No General: Alert, Oriented X3, Cooperative, mild distress Abdomen: Normal bowel sounds, Soft, Other (Wounds clean dry and intact mild tenderness in the right upper quadrant) Labs Laboratory Tests Test 05/13/21 22:40 05/13/21 22:49 05/13/21 22:58 05/14/21 08:34 Urine Collection Type Unknown Urine Color Yellow Urine Clarity Clear Urine pH 6.0 (<5.0-8.0) Urine Specific [place] 1.025 (1.000-1.030) Urine Protein Negative mg/dL (NEG-TRACE) Urine Glucose (UA) Negative mg/dL (NEG) Urine Ketones (Stick) Negative mg/dL (NEG) Urine Blood Small (NEG) Urine Nitrite Negative (NEG) Urine Bilirubin Negative (NEG) Urine Urobilinogen Dipstick 0.2 mg/dL (0.2 mg/dL) Urine Leukocyte Esterase Negative (NEG) Urine RBC 1-2 /HPF (0-2) Urine WBC 1-4 /HPF (0-4) Urine Squamous Epithelial Cells Mod /LPF Urine Bacteria Few /HPF (0-FEW) Bedside Urine HCG, Qualitative Hcg negative (Negative) White Blood Count 5.3 x10^3/uL (4.0-11.0) Red Blood Count 4.00 x10^6/uL (3.50-5.40) Hemoglobin 12.8 g/dL (12.0-15.5) Hematocrit 37.3 % (36.0-47.0) Mean Corpuscular Volume 93 fL (79-100) Mean Corpuscular Hemoglobin 32 pg (25-35) Mean Corpuscular Hemoglobin Concent 34 g/dL (31-37) Red Cell Distribution Width 12.1 % (11.5-14.5) Platelet Count 175 x10^3/uL (140-400) Neutrophils (%) (Auto) 48 % (31-73) Lymphocytes (%) (Auto) 40 % (24-48) Monocytes (%) (Auto) 6 % (0-9) Eosinophils (%) (Auto) 5 % (0-3) Basophils (%) (Auto) 1 % (0-3) Neutrophils # (Auto) 2.6 x10^3/uL (1.8-7.7) Lymphocytes # (Auto) 2.1 x10^3/uL (1.0-4.8) Monocytes # (Auto) 0.3 x10^3/uL (0.0-1.1) Eosinophils # (Auto) 0.3 x10^3/uL (0.0-0.7) Basophils # (Auto) 0.0 x10^3/uL (0.0-0.2) Sodium Level 142 mmol/L (136-145) Potassium Level 3.9 mmol/L (3.5-5.1) Chloride Level 105 mmol/L (98-107) Carbon Dioxide Level 26 mmol/L (21-32) Anion Gap 11 (6-14) Blood Urea Nitrogen 17 mg/dL (7-20) Creatinine 0.8 mg/dL (0.6-1.0) Estimated GFR (Cockcroft-Gault) 87.4 BUN/Creatinine Ratio 21 (6-20) Glucose Level 95 mg/dL (70-99) Calcium Level 8.5 mg/dL (8.5-10.1) Total Bilirubin 0.2 mg/dL (0.2-1.0) Aspartate Amino Transf (AST/SGOT) 8 U/L (15-37) Alanine Aminotransferase (ALT/SGPT) 27 U/L (14-59) Alkaline Phosphatase 77 U/L (46-116) Total Protein 7.5 g/dL (6.4-8.2) Albumin 3.7 g/dL (3.4-5.0) Albumin/Globulin Ratio 1.0 (1.0-1.7) Lipase 242 U/L (73-393) SARS-CoV-2 Antigen (Rapid) Negative (NEGATIVE) Problem List Problems Medical Problems: (1) Cholecystitis, acute with cholelithiasis Status: Acute Assessment/Plan Status post laparoscopic cholecystectomy doing quite well cleared for discharge from surgical standpoint Follow-up with Dr. Remy in 2 weeks no lifting more than 20 pounds and a low-fat diet for 2 weeks Justicifation of Admission Dx: Justifications for Admission: Justification of Admission Dx: N/A HANANE VIEYRA MD May 15, 2021 08:48
--- NOTE | 2021-05-15 08:48 | DISCH ---
DISCHARGE INSTRUCTIONS Condition on Discharge Condition on Discharge: Stable Activity After Discharge Activity Instructions for Disc: Avoid exertion Other activity instructions: No lifting more than 20 pounds for 2 weeks Diet after Discharge Diet after Discharge: Low Fat Follow-Up Follow up with: Dr. Remy in 2 weeks HANANE VIEYRA MD May 15, 2021 08:48
[2021-05-15] MEDS ORDERED: OXYC1TAB15 PO (09:36)
--- NOTE | 2021-05-15 09:38 | PDOC3 ---
[facility]-Discharge Summary Date of Admission: Date of Admission: May 14, 2021 Date of Discharge: Date of Discharge: May 15, 2021 Admission Diagnosis: Admitting Diagnosis: cholecystitis Consults: Consults: Surgery Hospital Course: Hospital Course: HPI: Patient is a 25-year-old female presents to the emergency department complaining of right upper quadrant discomfort for the past 4 months. Patient reports she seen her primary care physician who diagnosed her with GERD and started her on omeprazole. Patient reports this does not seem to be helping. Patient denies taking other medications. Patient states her last menstrual cycle was approximately 2 years ago. Patient states she has an IUD. Patient reports intermittent nausea however is not nauseated at this time, denies vomiting, diarrhea, chest pains or chest palpitations, denies chest or nasal congestion. Patient denies recent fever or chills. Patient denies a surgical history. Patient denies history of gallstones or gallbladder disease. Patient reports she does not smoke cigarettes however does vape on occasion, denies alcohol consumption, reports he does smoke marijuana. Patient states her current pain is an 8 out of 10. Patient reports eating makes it worse, does not feel anything makes it better. Has not taken [id number] or prescription pain medications for this pain. 05/15 Patient evaluated examined at bedside. Did well with surgery yesterday eating and drinking without difficulty. Pain well-tolerated with medications. Okay to discharge today. Greater than 30 minutes spent on this discharge. Disposition: Disposition/Orders: D/C to Home Activity: Activity: Resume previous activity Diet: Diet: Regular Medications: Home Meds Active Scripts Oxycodone/Apap 5-325 (PERCOCET 5-325 MG TABLET ) 1 Each Tablet, 1 TAB PO PRN Q4HRS PRN for MILD PAIN, 1ST CHOICE for 10 Days, #20 TAB Prov:PRAVEEN JASMINE MD 05/15/21 Reported Medications Pantoprazole Sodium (PROTONIX) 20 Mg Tablet., 1 TAB PO DAILY for GERD, #30 TAB 05/14/21 Scheduled Pantoprazole Sodium (Protonix), 1 TAB PO DAILY, (Reported) Scheduled PRN Oxycodone/Apap 5-325 (Percocet 5-325 Mg Tablet ), 1 TAB PO PRN Q4HRS PRN for MILD PAIN, 1ST CHOICE Justicifation of Admission Dx: Justifications for Admission: Justification of Admission Dx: N/A PRAVEEN JASMINE MD May 15, 2021 09:38
--- NOTE | 2021-05-15 10:31 | NUR ---
SW following. Discussed with RN, discharge order for home with self care. RN advised no SW needs.
[2021-05-15 10:54] VITALS: BP 100/64
--- NOTE | 2021-05-15 11:26 | NUR ---
Patient left around 1125 with her mom. IV removed. Discharge education completed by this nurse and the doctor prior to dismissal. Dressings CDI to abdomen. No concerns noted at discharge.
--- NOTE | 2021-05-15 16:11 | PATHOLOGY ---
[facility] Accession Number: [id number] . 01 Material submitted: . gallbladder - GALLBLADDER AND CONTENTS . 01 Clinical history: . CHOLECYSTITIS, CHOLELITHIASIS LAP ERICK . 02 Diagnosis: Gallbladder, laparoscopic cholecystectomy: - Cholelithiasis. - Chronic cholecystitis. (JPM:daria; 05/15/2021) QMS 05/15/2021 1401 Local . 02 Comment: There is no evidence of malignancy. (JPM:daria; 05/15/2021) . 02 Electronically signed: . Shreyas Yu MD, Pathologist NPI- [id number] . 01 Gross description: . Fixative: Formalin Labeled: Gallbladder and contents Specimen received: Intact gallbladder Dimensions: 8.5 x 3.3 x 3.3 cm Serosa: [place] and smooth to cauterized Lymph node: Not identified Mucosa: Bile-stained, velvety Average wall thickness: 0.3 cm Calculi: Multiple present displaying a green-yellow, multifaceted appearance ranging in size from 1.3-1.8 cm and measuring 6.3 x 6.1 cm in aggregate dimensions Abnormalities: None identified . A1- Customer Specialist body, fundus, and the cystic duct margin. ([facility]; 05/14/2021) NRI/NRI 05/14/2021 1805 Local . 02 Pathologist provided ICD-10: K80.10 . 02 CPT . 703552 Specimen Comment: A courtesy copy of this report has been sent to [phone], [phone] Specimen Comment: [id number] Specimen Comment: Report sent to / DR FERNANDEZ Specimen Comment: A duplicate report has been generated due to demographic updates. Performed at: [address] [place], [place] [address]vd [address], [place], [place] [id number] MD Uche Henderson MD Phone: [phone] Performed at: [address] [id number] MD Shreyas Yu MD Phone: [phone]
== END 2021-05-15 11:29 | disposition home or self-care (01) ==
LOC: ER 21:41 → 4 NORTH 05-14 00:50 → INTOOBSV 05-14 00:50 → 4 NORTH 05-14 01:50
PROVIDERS: ADMIT Internal Medicine; ATTEND Internal Medicine
DX: K80.00 Calculus of gallbladder with acute cholecystitis without obstruction (principal); Z20.822 Contact with and (suspected) exposure to COVID-19; K21.9 Gastro-esophageal reflux disease without esophagitis; E66.9 Obesity, unspecified; K82.8 Other specified diseases of gallbladder; Z87.440 Personal history of urinary (tract) infections; Z79.899 Other long term (current) drug therapy; Z98.890 Other specified postprocedural states; Z68.33 Body mass index [BMI] 33.0-33.9, adult
CPT/HCPCS: 36415; 47563; 74300; 76705; 80053; 81001; 81025; 83690; 85025; 87426; 88304; 96361; 96374; 99284; A4213; A4930; A6219; C1887; G0378; J0690; J0780; J1100; J1170; J1644; J1885; J2250; J2270; J2405; J2704; J3490; J7030; J7120; Q9967; G0379; J3010; 99285-25